=== PATIENT | male | born 1950 | race Caucasian/White ===

== ENCOUNTER 2017-06-28 16:07 | Inpatient (IN) | payer OTHER ==
[2017-06-28] MEDS ORDERED: ONDANSETRON 4 MG/2 ML VIAL ONE (16:16)
[2017-06-28] MEDS ORDERED: NS 250 ML IV ONE (16:17)
[2017-06-28] MEDS ORDERED: ONDANSETRON 4 MG/2 ML VIAL IVP ONE (16:17)
--- NOTE | 2017-06-28 16:20 | EDPHY ---
H & P Time Seen by Provider: 06/28/17 16:15 HPI/ROS: CHIEF COMPLAINT: Altered mental status HISTORY OF PRESENT ILLNESS: The patient is a 67-year-old male who presents to the emergency department as a full trauma activation via EMS. Per report, the patient was found in the revealing. The report was that he had fallen. Some bystanders help the patient out and walking down the trail. EMS was notified. The patient reports drinking 1 beer. He denies other drug use. The patient does not give a clear history of the event. He denies headache or neck pain. No chest pain or shortness of breath. No abdominal pain. EMS reports the patient's glucose was 100. REVIEW OF SYSTEMS: My complete review of systems is negative except as mentioned in the HPI. Patient notes a large bump in his sternum a baseline Past Medical/Surgical History: Past medical history: Includes cardiac stent with presumed coronary disease. Past surgical history: Includes hernia repair, bilateral hip replacement Social history: The patient drank alcohol today Smoking Status: Never smoked Physical Exam: Vitals noted GENERAL: No acute distress, alert. HEAD: No evidence of trauma. EYES: PERRLA, EOMI, normal to inspection. ENT: Airway intact, no dental or oral injury, no malocclusion, no hemotympanum , normal external examination. NECK: The trachea is midline. There is no crepitus. The C-spine is nontender. RESPIRATORY: Clear to auscultation bilaterally, no rales, rhonchi or wheezing. There is no crepitus or palpable rib fractures. CVS: Regular rate and rhythm, no rubs, murmurs, or gallops. ABDOMEN: Soft, nontender, nondistended, normal bowel sounds, no bruising or abrasions. Pelvis: Stable. No tenderness palpation. Hips full range of motion. GENITAL/RECTAL: Normal external exam. BACK: Normal to inspection, no spinal tenderness, no spinal step off, no notable bruising or abrasions. SKIN: Normal color, warm, dry. No pallor or diaphoresis. EXTREMITIES: Right upper extremity: Atraumatic. No visible signs of trauma. No tenderness palpation. Neurovascular intact distally. Left upper extremity: Atraumatic. No visible signs of trauma. No tenderness palpation. Neurovascular intact distally. Right lower extremity: Atraumatic. No visible signs of trauma. No tenderness palpation. Neurovascular intact distally. Left lower extremity: Atraumatic. No visible signs of trauma. No tenderness palpation. Neurovascular intact distally. NEURO/PSYCH: Alert and oriented x 2, GCS 14, normal mood and affect, normal motor sensory exam. Constitutional: Initial Vital Signs Temperature (C) 36.2 C 06/28/17 16:08 Heart Rate 71 06/28/17 16:08 Respiratory Rate 20 06/28/17 16:08 Blood Pressure 115/76 06/28/17 16:08 O2 Sat (%) 98 06/28/17 16:08 O2 Delivery Mode Room Air Allergies/Adverse Reactions: hydrocodone Allergy (Mild, Verified 09/09/13 02:07) Itching Home Medications: Medication Instructions Recorded Atorvastatin Calcium [Lipitor 20 20 mg PO DAILY 09/06/13 mg (*)] Escitalopram Oxalate [Lexapro] 20 mg PO DAILY 09/06/13 Zolpidem Tartrate [Ambien 10 mg] 10 mg PO HS 09/06/13 clonazePAM [Klonopin (*)] 0.5 - 1 mg PO DAILY PRN 09/06/13 traMADol [Ultram 50 mg (*)] 50 mg PO Q6 PRN 09/06/13 Oxycodone Ir [Oxy Ir 5 mg (RX)] 5 - 15 mg PO Q3 PRN #60 tab 12/01/13 Aspirin [Aspirin 81mg (*)] 06/28/17 Medical Decision Making - Diagnostics Imaging Results: Imaging Impressions Abdomen CT 06/28/17 00:00 Impression: 1. Extensive pulmonary abnormalities consisting of spiculated pulmonary nodules , infiltration of the perihilar regions bilaterally, and mediastinal lymphadenopathy. This may represent a manifestation of sarcoidosis or granulomatous disease, although malignant etiology could appear similar. Correlation with previous outside imaging examinations would be of benefit. 2. No evidence of acute traumatic injury within the chest, abdomen, or pelvis. Degenerative changes within the thoracic and lumbar spine. Results reviewed directly with Dr. Ramirez and also called to Dr. Chen George. Cervical Spine CT 06/28/17 16:14 Impression: Cervical degenerative changes. No acute fracture identified. Examination reviewed with Dr. Ramirez at the time of the study. Head CT 06/28/17 16:14 Impression: Negative noncontrast CT of the brain Results reviewed with Dr. Ramirez at the time of the interpretation. Chest CT 06/28/17 16:17 Impression: 1. Extensive pulmonary abnormalities consisting of spiculated pulmonary nodules , infiltration of the perihilar regions bilaterally, and mediastinal lymphadenopathy. This may represent a manifestation of sarcoidosis or granulomatous disease, although malignant etiology could appear similar. Correlation with previous outside imaging examinations would be of benefit. 2. No evidence of acute traumatic injury within the chest, abdomen, or pelvis. Degenerative changes within the thoracic and lumbar spine. Results reviewed directly with Dr. Ramirez and also called to Dr. Chen George. Procedures: Procedure: Trauma ultrasound. Limited echocardiogram for pericardial effusion. Limited bedside ultrasound was performed and interpreted by myself for the indication of: thoracoabdominal trauma utilizing the thoracoabdominal emergency ultrasound protocol. Limited transthoracic echocardiogram: The pericardium was visualized and found to be negative for pericardial fluid. The study was negative for pericardial effusion. Limited abdominal ultrasound for blunt abdominal trauma. 1) The right upper quadrant was visualized and was found to be negative for intraperitoneal fluid. 2) The left upper quadrant was visualized and found to be negative for intraperitoneal fluid. The study was felt to be negative for free intraperitoneal fluid. Limited pelvic ultrasound was conducted for abdominal trauma. The bladder was visualized and did not reveal an anechoic area outside of the adjacent urinary bladder. The study was felt to be negative for free intraperitoneal fluid. ED Course/Re-evaluation: In the emergency department I discussed possible etiologies with the patient. I answered all his questions. I discussed the plan. The patient was taken to CT imaging. Dr. Ramirez was present for the initial evaluation. He requested that I add a CT of the chest. This was completed. I performed a bedside FAST ultrasound on his initial evaluation. Negative. The patient was covered in warm blankets. His initial temperature was 36degrees. I checked on the patient while in CT imaging. He was stable. Dr. Ramirez was with him during CT imaging. 1645: I reexamined the patient in the emergency department. He had episodes of closing his eyes and leaning back in the bed. He continues to maintain his airway but he became less responsive. He would arouse to voice. His initial CT imaging reports by Dr. Raimrez showed nothing acute in the head or neck. Dr. Ramirez reported to me that the patient had significant metastatic disease in the chest. Because of this I called Dr. Alejandro. The [employer] phone was not working and I was unable to get a hold of him. I subsequently paged Dr. Davison. The [employer] phone was not working and I was unable to get hold of him. I will have the [employer] paged the product inspection coordinator radiologist. EKG shows normal sinus rhythm, normal rate, normal axis, normal intervals. There are no ST or T-wave abnormalities. EKG is normal as interpreted by me. Dr. Ramirez discussed the findings with the patient. The patient stated that he had a history of sarcoidosis. I am still waiting call back from Radiology. The patient's laboratory studies were unremarkable. CBC and chemistry are normal. Troponin is normal. Alcohol less than 10. 1700: Head CT/C-spine. Please refer the dictated report by Dr. Longo. Patient has cerebral atrophy. The spine shows DJD . No acute disease noted. CT chest, abdomen and pelvis: Please refer the dictated report by Dr. Lion Alejandro. The patient has multiple nodular lesions is lungs. There lymphadenopathy. This could be consistent with metastatic disease as well as sarcoidosis. The patient's abdomen and pelvis is unremarkable for any traumatic injury. Because of the patient's mental status an MRI was ordered. On further history with the patient and discussion with Dr. Ramirez, the patient states that he was actually sitting on a rock drinking a beer. He became very tired and laid down. This is when the by bystanders found him. He denies falling. 1814: I rechecked the patient when he returned from MRI imaging. He has eyes closed appeared to be sleeping. He was arousable by voice. It is unclear why he is so somnolent. Patient denies any other medications this afternoon. He denies drug use. U tox is pending. I am awaiting MRI results. Differential Diagnosis: My differential includes but is not limited to subarachnoid hemorrhage, subdural hematoma, epidural hematoma, spinal injury, ischemic CVA, hemorrhagic CVA, dissection, aneurysm, ACS, acute IA, electrolyte abnormality, sugar abnormality, hypoglycemia Critical Care Time: The patient required 45 min of critical care time. This was exclusive of any unbundled procedure. This was due the patient's presentation as a full trauma activation, episodic altered mental status, need for frequent rechecks, consultation with Radiology and Trauma surgery. - Data Points Laboratory Results: Laboratory Results 06/28/17 16:14 06/28/17 16:14 06/28/17 06/28/17 06/28/17 16:14 16:14 16:14 WBC RBC Hgb Hct MCV MCH MCHC RDW Plt Count MPV Neut % (Auto) Lymph % (Auto) Canadian % (Auto) Eos % (Auto) Baso % (Auto) Nucleat RBC Rel Count Absolute Neuts (auto) Absolute Lymphs (auto) Absolute Monos (auto) Absolute Eos (auto) Absolute Basos (auto) Absolute Nucleated RBC Immature Gran % Immature Gran # PT 13.4 SEC SEC (12.0-15.0) INR 1.00 (0.83-1.16) APTT 25.0 SEC SEC (23.0-38.0) Sodium 141 mEq/L mEq/L (134-144) Potassium 3.8 mEq/L mEq/L (3.5-5.2) Chloride 104 mEq/L mEq/L (97-110) Carbon Dioxide 24 mEq/l mEq/l (22-31) Anion Gap 13 mEq/L mEq/L (8-16) BUN 21 mg/dL mg/dL (7-23) Creatinine 1.0 mg/dL mg/dL (0.7-1.3) Estimated GFR > 60 Glucose 94 mg/dL mg/dL (70-100) Calcium 9.9 mg/dL mg/dL (8.5-10.4) Total Bilirubin 0.5 mg/dL mg/dL (0.1-1.4) Conjugated Bilirubin 0.2 mg/dL mg/dL (0.0-0.5) Unconjugated Bilirubin 0.3 mg/dL mg/dL (0.0-1.1) AST 36 IU/L IU/L (17-59) ALT 54 IU/L IU/L (21-72) Alkaline Phosphatase 58 IU/L IU/L (38-126) Troponin I < 0.012 ng/mL ng/mL (0.000-0.034) Total Protein 6.8 g/dL g/dL (6.3-8.2) Albumin 4.1 g/dL g/dL (3.5-5.0) Ethyl Alcohol < 10 mg/dL mg/dL (0-10) Patient ABO/Rh B POSITIVE Antibody Screen NEGATIVE 06/28/17 16:14 WBC 7.46 10^3/uL 10^3/uL (3.80-9.50) RBC 4.87 10^6/uL 10^6/uL (4.40-6.38) Hgb 14.1 g/dL g/dL (13.7-17.5) Hct 42.3 % % (40.0-51.0) MCV 86.9 fL fL (81.5-99.8) MCH 29.0 pg pg (27.9-34.1) MCHC 33.3 g/dL g/dL (32.4-36.7) RDW 15.0 % % (11.5-15.2) Plt Count 157 10^3/uL 10^3/uL (150-400) MPV 10.7 fL fL (8.7-11.7) Neut % (Auto) 82.7 % H % (39.3-74.2) Lymph % (Auto) 7.5 % L % (15.0-45.0) Canadian % (Auto) 8.3 % % (4.5-13.0) Eos % (Auto) 0.8 % % (0.6-7.6) Baso % (Auto) 0.4 % % (0.3-1.7) Nucleat RBC Rel Count 0.0 % % (0.0-0.2) Absolute Neuts (auto) 6.17 10^3/uL 10^3/uL (1.70-6.50) Absolute Lymphs (auto) 0.56 10^3/uL L 10^3/uL (1.00-3.00) Absolute Monos (auto) 0.62 10^3/uL 10^3/uL (0.30-0.80) Absolute Eos (auto) 0.06 10^3/uL 10^3/uL (0.03-0.40) Absolute Basos (auto) 0.03 10^3/uL 10^3/uL (0.02-0.10) Absolute Nucleated RBC 0.00 10^3/uL 10^3/uL (0-0.01) Immature Gran % 0.3 % % (0.0-1.1) Immature Gran # 0.02 10^3/uL 10^3/uL (0.00-0.10) PT INR APTT Sodium Potassium Chloride Carbon Dioxide Anion Gap BUN Creatinine Estimated GFR Glucose Calcium Total Bilirubin Conjugated Bilirubin Unconjugated Bilirubin AST ALT Alkaline Phosphatase Troponin I Total Protein Albumin Ethyl Alcohol Patient ABO/Rh Antibody Screen Departure - Departure Disposition: [facility] Acute Clinical Impression: Altered mental status, unspecified Qualifiers: Altered mental status type: unspecified Qualified Code(s): R41.82 - Altered mental status, unspecified Fall Qualifiers: Encounter type: initial encounter Qualified Code(s): W19.XXXA - Unspecified fall, initial encounter Condition: Fair
[2017-06-28 16:28] LABS: % IMMATURE GRANULYOCYTES 0.3 % (0.0-1.1); ABSOLUTE IMMATURE GRANULOCYTES 0.02 10^3/uL (0.00-0.10); ADD DIFF? NO; ADD MORPH? NO; ADD SCAN? NO; ATYPICAL LYMPHOCYTE FLAG 0 (0-99); FRAGMENT RBC FLAG 0 (0-99); HEMATOCRIT 42.3 % (40.0-51.0); HEMOGLOBIN 14.1 g/dL (13.7-17.5); LEFT SHIFT FLG 0 (0-99); LIPEMIA HEMOLYSIS FLAG 80 (0-99); MEAN CELL HEMOGLOBIN CONCENTR. 33.3 g/dL (32.4-36.7); MEAN CELL VOLUME 86.9 fL (81.5-99.8); MEAN PLATELET VOLUME 10.7 fL (8.7-11.7); PLATELET CLUMPS FLAG 10 (0-99); PLATELET COUNT 157 10^3/uL (150-400); RED BLOOD CELL COUNT 4.87 10^6/uL (4.40-6.38)
[2017-06-28 16:37] LABS: PROTIME(PATIENT) 13.4 SEC (12.0-15.0)
[2017-06-28 16:39] LABS: ALANINE AMINOTRANSFERASE 54 IU/L (21-72); ALBUMIN 4.1 g/dL (3.5-5.0); ALKALINE PHOSPHATASE 58 IU/L (38-126); ANION GAP 13 mEq/L (8-16); ASPARTATE AMINOTRANSFERASE 36 IU/L (17-59); BILIRUBIN,TOTAL 0.5 mg/dL (0.1-1.4); BILIRUBIN-CONJUGATED 0.2 mg/dL (0.0-0.5); BILIRUBIN-UNCONJUGATED 0.3 mg/dL (0.0-1.1); CALCIUM 9.9 mg/dL (8.5-10.4); CARBON DIOXIDE 24 mEq/l (22-31); CHLORIDE 104 mEq/L (97-110); ETHANOL SERUM < 10 mg/dL (0-10); GLOMERULAR FILTRATION RATE > 60; GLUCOSE 94 mg/dL (70-100); POTASSIUM 3.8 mEq/L (3.5-5.2); SODIUM 141 mEq/L (134-144); TOTAL PROTEIN 6.8 g/dL (6.3-8.2)
[2017-06-28 16:50] LABS: TROPONIN I < 0.012 ng/mL (0.000-0.034)
--- NOTE | 2017-06-28 16:50 | CPEKG ---
Heart Rate: 71 RR Interval: 845 P-R Interval: 192 QRSD Interval: 96 QT Interval: 408 QTC Interval: 444 P [place]: 57 QRS [place]: 35 T Wave [place]: 4 EKG Severity - BORDERLINE ECG - EKG Impression: SINUS RHYTHM EKG Impression: BORDERLINE INFERIOR Q WAVES Electronically Signed By: Santiago Gallardo 30-Jun-2017 08:45:10
--- NOTE | 2017-06-28 17:04 | ASMTCMCOM ---
CM Note CM Note Notes: Patient arrives to ER via EMS-[facility]. patient was evidently found by other hikers at [facility] after patient apparently feel off the trail and into a ravine. Patient was then described to EMS as "confused" as they walked him to the parking lot. Patient is awake, responding to ER staff and then taken to CT. Per chart review (previous visit) pt has a , Lisa forman and a friend, John . I have LM with both, received call back from John who informs me patient is . Patient moved to [place] from [place] within the past couple of years (after his divorce). John is unaware of any other NOK/contacts for patient Patient returns from CT and states that he has a daughter, Renuka in [place] . I have called Renuka and LM re patient's status and have updated patient's contact information with registration Date Signed: 06/28/2017 05:04 PM Electronically Signed By:Fifi Castaneda RN
[2017-06-28] MEDS ORDERED: GADOBUTROL 10 ML VIAL IVP ONE (17:41)
--- NOTE | 2017-06-28 17:49 | GHP ---
[f rep st] PREOP HISTORY AND PHYSICAL DATE OF ADMISSION: 06/28/2017 The patient was a full trauma activation. HISTORY: The patient is a 67-year-old male who was hiking in the [place] area. He was tired. He found a nice rock to sit down on and had a cold beer. Next thing he knew he was being helped up by passersby and actually was walked out of the area. He apparently got a little lightheaded. A ranger was called and EMS met them at the [place] [facility]. On presentation to the emergency department. He is somewhat somnolent. There had been an erroneous history that he was on an anticoagulant. His airway was clear. His breathing was unencumbered. There is no obvious bleeding or injury. Focused history shows that he has hives with [place]. CURRENT MEDICATIONS: Include Klonopin, Lexapro, Wellbutrin, Lipitor, and 81 mg aspirin. FOCUSED HISTORY: Reveals that he has had 1 seizure in the past. He has had a laparoscopic inguinal hernia repair, 2 cardiac stents, bilateral hip replacements, and sarcoidosis. On a head-to-toe examination, his skull was normocephalic and atraumatic. His pupils were 3 mm and reactive. He was oriented x3. GCS was 14. Cranial nerves were intact. He has normal dental occlusion. There are no raccoon eyes. No Ta sign. His head was maintained in line traction. His collar was removed. His neck was palpably normal (note he had walked out without a collar). The collar was replaced until the CT report of the cervical spine became available. His right upper extremity and left upper extremity were unremarkable and had full range of motion. The clavicles are unremarkable. The chest is stable to AP and lateral compression. LUNGS: Clear to auscultation. CARDIAC: Shows S1, S2 to be normal. Normal split of S2 without murmurs, rubs, or gallops. Abdomen is soft and nontender, normoactive bowel sounds. A FAST examination did not show any signs of intraabdominal fluid. Did not show any signs of cardiac tamponade. Appeared to show an appropriate ejection fraction. His pelvis is stable to AP and lateral compression. His lower extremities are unremarkable. The back was inspected when he was rolled prior to going into the CT. He was taken to CAT scan where a CAT scan of his head shows, among other thing, some atrophy, but no obvious bleeding at this point. His C-spine was unremarkable. His CT of his chest showed nodular changes in the lung dominguez and prominent central nodes. His abdomen CT was unremarkable. On his return to the emergency department, he is more arousable at this point. At this point, he relates that the nodularity in his chest may in fact be the sarcoid he has been followed for the past 6 years. 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 IMPRESSION: Aside from a sedated affect, no other abnormalities were appreciated. Initial blood pressure was 115/76, heart rate 71, respiratory rate 20, temperature 36.2, pulse ox 98. His blood pressure remained stable. His laboratories were unremarkable. His glucose was appropriate. The source of his sedation remains unclear. An MRI of his brain will be obtained. He will be observed in the emergency room and if it is not clear or he does not clear, he will be admitted for observation. /[id number]/MODL MTDD
[2017-06-28] MEDS ORDERED: ONDANSETRON DISINTEGRATING 4 MG TAB PO PRN (18:21)
[2017-06-28] MEDS ORDERED: LR 1,000 ML IV SCH (18:30)
[2017-06-28 18:49] LABS: COLOR PALE YELLOW; LEUKOCYTE ESTERASE,URINE NEGATIVE (NEGATIVE); NITRITE,URINE NEGATIVE (NEGATIVE)
[2017-06-28] MEDS ORDERED: ACETAMINOPHEN 325 MG TAB PO SCH (22:00)
[2017-06-29] MEDS: ACETAMINOPHEN 500 MG TAB PO SCH ×3 (00:09→15:36)
[2017-06-29 04:34] LABS: % IMMATURE GRANULYOCYTES 0.2 % (0.0-1.1); ABSOLUTE IMMATURE GRANULOCYTES 0.01 10^3/uL (0.00-0.10); ADD DIFF? NO; ADD MORPH? NO; ADD SCAN? YES; ATYPICAL LYMPHOCYTE FLAG 0 (0-99); FRAGMENT RBC FLAG 0 (0-99); HEMATOCRIT 39.2 % (40.0-51.0); HEMOGLOBIN 13.1 g/dL (13.7-17.5); LEFT SHIFT FLG 0 (0-99); LIPEMIA HEMOLYSIS FLAG 80 (0-99); MEAN CELL HEMOGLOBIN 28.8 pg (27.9-34.1); MEAN CELL HEMOGLOBIN CONCENTR. 33.4 g/dL (32.4-36.7); MEAN CELL VOLUME 86.2 fL (81.5-99.8); MEAN PLATELET VOLUME 10.8 fL (8.7-11.7); PLATELET COUNT 148 10^3/uL (150-400); RED BLOOD CELL COUNT 4.55 10^6/uL (4.40-6.38); RED CELL DISTRIBUTION WIDTH 15.2 % (11.5-15.2)
[2017-06-29 04:35] LABS: PLATELET CLUMPS FLAG 210 (0-99)
[2017-06-29 04:55] LABS: ANION GAP 9 mEq/L (8-16); CALCIUM 8.8 mg/dL (8.5-10.4); CARBON DIOXIDE 21 mEq/l (22-31); CHLORIDE 111 mEq/L (97-110); CREATININE 0.9 mg/dL (0.7-1.3); GLOMERULAR FILTRATION RATE > 60; GLUCOSE 84 mg/dL (70-100); POTASSIUM 3.9 mEq/L (3.5-5.2); SODIUM 141 mEq/L (134-144)
[2017-06-29 05:00] LABS: SCAN NEGATIVE
--- NOTE | 2017-06-29 07:53 | TRAUMAPN ---
Assessment/Plan: PAD#1 06/29/2017 Assessment: Stable from trauma standpoint. Concerns have changed. Apparently the patient has been under mental health care. He reports that he recently started working at [employer] (formerly known [employer]) and stole several items. He was caught and said that he offered to pay for the items. That was not accepted. He tried to contact the police but reports that he was unable to do so. He states that he became despondent, took Ambien (15) and clonazepam (15) when he took a hike yesterday. He also reports a beer. He said that he was trying to commit suicide. Plan: M1 hold I will ask the hospitalist to assist/assume care Get mental health involved. Subjective: "I'm so sorry" Objective: Vital Signs Temp Pulse Resp BP Pulse Ox 36.5 C 68 10 L 138/75 H 98 06/29/17 04:00 06/29/17 04:00 06/29/17 04:00 06/29/17 04:00 06/29/17 04:00 Laboratory Results 06/29/17 04:15 06/29/17 04:15 06/28/17 06/29/17 06/30/17 05:59 05:59 05:59 Intake Total 1200 Output Total 200 Balance 1000 PT 13.4 SEC (12.0-15.0) 06/28/17 16:14 INR 1.00 (0.83-1.16) 06/28/17 16:14 - C-Spine Clearance Cervical Spine Cleared: Yes Provider who Cleared Cervical Spine: James Physical Exam - Physical Exam General Appearance: WD/WN, alert, no apparent distress Neck: non-tender, full range of motion, supple Respiratory: chest non-tender, lungs clear, normal breath sounds Cardiac/Chest: regular rate, rhythm Abdomen: normal bowel sounds, non-tender, soft Male Genitalia: deferred Rectal: deferred Back: Normal inspection Skin: normal color, warm/dry Extremities: normal range of motion, non-tender Neuro/Psych: no motor/sensory deficits, alert, normal mood/affect, oriented x 3 Time Spent w/Patient (minutes): 25
[2017-06-29] MEDS ORDERED: ASPIRIN 81 MG CHEWABLE TAB PO SCH (09:00)
[2017-06-29 09:16] VITALS: PULSE 70; RESP 16; TEMP 98.1
--- NOTE | 2017-06-29 12:23 | GCON ---
[f rep st] CONSULTATION DATE OF CONSULTATION: 06/29/2017 REFERRING PHYSICIAN: Alberto Ramirez MD REASON FOR CONSULTATION: Suicide attempt. HISTORY OF PRESENT ILLNESS: A 67-year-old male with history of anxiety, depression, coronary disease , who was hiking at [place] and felt very fatigued. He found a rock to sit down and had a beer. The next thing he remembers was being held by a passerby. On presentation to the ER, he was somewhat somnolent. Upon my interview, he states that he received bad news from an ex-employer at 2:00 p.m. and felt hope less and could not think of a positive outcome, so took 15 Klonopin and 15 Ambien in hopes to kill hi mself. He is followed by [facility] for the past 2 years and last saw them 10 days ago. He had previously been on Wellbutrin but tapered himself off the last 3 weeks. He says he told [facility] and they were okay with that. He still takes clonazepam. Denies other episodes of suicide attempt. Overall he says he has actually been doing well the last year, socially, mentally and physically, bu t this news really upset him. REVIEW OF SYSTEMS: I completed a 10-point review of systems, negative except as noted in HPI. PAST MEDICAL HISTORY: Anxiety, depression, followed by P, coronary artery disease with 2 stents 15 years ago, sarcoid. PAST SURGICAL HISTORY: Bilateral ERIS, cholecystectomy, left knee repair, inguinal mesh this year. FAMILY HISTORY: Dad with lymphoma and diabetes. Mother when she was 76. SOCIAL HISTORY: He is . He has 3 kids that he is estranged from, but is trying to rebuild t he relationship with 1 of them. He is living in [place]. Denies tobacco or drugs. Drinks daily win e. MEDICATIONS: Multivitamin, herbal supplement, Ambien 10 mg at bedtime, fish oil 2000 mg daily, lisin opril 5 mg daily, temazepam 0.1 mg p.o. p.r.n., atorvastatin 20, aspirin 81 mg daily. ALLERGIES: Hydrocodone. PHYSICAL EXAMINATION: VITAL SIGNS: Temperature 36.7, blood pressure 130/79, heart rate in the 70s, respirations 16, and 98 on room air. GENERAL: Well-appearing male sitting up in bed, no acute distr ess. HEENT: PERRLA. EOMI. Oropharynx clear. CV: Regular rate and rhythm. No murmurs, gallops, rubs. LUNGS: Clear to auscultation bilaterally. ABDOMEN: Soft, nontender, nondistended. Positive bowel sounds. : No Jacinto. MUSCULOSKELETAL: 5/5 upper and lower extremity strength. NEURO: 2 through 12 intact. PSYCH: Alert and oriented x3. Flat affect. Answering questions appropriately. LABORATORY DATA: WBC is 5.2, hemoglobin 13, hematocrit 39, platelets 148. Coags within normal. Sod ium 141, potassium 3.9, chloride 111, carbon dioxide 21, creatinine 0.9, glucose 84. UA negative. U rine tox negative. Negative alcohol. Coags within normal. LFTs within normal. Troponin less than 0.012. Abdominal CT: Extensive pulmonary abnormality consisting of spiculated pulmonary nodules, infiltrati on of perihilar region bilaterally and mediastinal lymphadenopathy. This may be airport representative of sa rcoid. No evidence of acute traumatic chest injury. Cervical spine CT: Cervical degenerative changes. No acute fracture. Chest CT: Extensive pulmonary abnormalities consistent of spiculated prominent pulmonary nodules. Brain MRI: Negative study. EKG personally reviewed by me, normal sinus rhythm. ASSESSMENT AND PLAN: 1. Suicidal attempt: Patient endorses taking clonazepam and Ambien in the setting of bad news from his old employer. He is medically cleared and I recommend evaluation by [facility]. I w ill place a call today. 2. Concern for possible fall: Patient underwent extensive trauma evaluation with imaging by Dr. Vinny oates. No intervention warranted or acute fractures. 3. Coronary artery disease: Resume home medications. 4. Anxiety/depression: Again, P to evaluate. He did self taper off the Wellbutrin and question i f this was a good idea. I defer to them. 5. Hypertension: Lisinopril. DISPOSITION: Patient is medically clear, awaiting psychiatric evaluation and currently on a mental h [facility] hold. Thank you for this consultation. Will follow along. Please call if questions. /[id number]/MODL
[2017-06-29 15:51] VITALS: BP 143/80; O2SAT 96
[2017-06-29] MEDS ORDERED: PNEUMOC 13-VAL CONJ-DIP CRM/PF 0.5 ML SYR IM ONE (21:09)
[2017-06-29] MEDS ORDERED: FLU VACC QS 2017-18 (3YR+)/PF 0.5 ML SYR (FLUARIX QUAD) IM ONE (21:09)
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
== END 2017-06-29 22:03 | DRG 93 ==
LOC: EDUNIT# → F2N 18:36 → OBSVTOIN 06-29 10:51 → F2N 06-29 15:23
PROVIDERS: ADMIT Internal Medicine; ATTEND Internal Medicine
DX: G92 Toxic encephalopathy (principal); T42.6X2A Poisoning by other antiepileptic and sedative-hypnotic drugs, intentional self-harm, initial encounter; T42.4X2A Poisoning by benzodiazepines, intentional self-harm, initial encounter; I25.10 Atherosclerotic heart disease of native coronary artery without angina pectoris; F41.8 Other specified anxiety disorders; I10 Essential (primary) hypertension; D86.0 Sarcoidosis of lung; W19.XXXA Unspecified fall, initial encounter; Z96.643 Presence of artificial hip joint, bilateral; Z23 Encounter for immunization; Y93.01 Activity, walking, marching and hiking; Y92.828 Other wilderness area as the place of occurrence of the external cause
CPT/HCPCS: 80305; 82947-QW; A9585; G0008; G0009; G0378; G0480; J2405

== ENCOUNTER 2018-02-17 08:07 | Inpatient (IN) | payer OTHER ==
--- NOTE | 2018-02-17 07:29 | GHP ---
[f rep st] PREOP HISTORY AND PHYSICAL CHIEF COMPLAINT: Right ankle. HISTORY OF PRESENT ILLNESS: The patient is a 67 year old with a history of progressive right ankle pain. The patient is having limitations in his ambulatory status secondary to his pain. PAST MEDICAL HISTORY: Positive for coronary artery disease, depression, and hypercholesterol. PAST SURGICAL HISTORY: Positive for a bilateral total hip arthroplasty and cardiac stents. MEDICATIONS: He takes zolpidem and gabapentin. ALLERGIES: He lists no drug allergies. SOCIAL HISTORY: Negative for tobacco use. REVIEW OF SYSTEMS: Noncontributory. PHYSICAL EXAMINATION: GENERAL APPEARANCE: The patient is alert and oriented x3 , in mild distress secondary to his ankle discomfort. HEENT: Head is normocephalic. Pupils are equal, round, and reactive to light. Extraocular eye movements are intact. NECK: Supple. CHEST: Clear to auscultation. HEART : Regular rate and rhythm. No murmurs. ABDOMINAL: Soft, nontender, and nondistended. No organomegaly. GENERAL RECTAL/BREASTS: Deferred. EXTREMITIES : Reveal swelling and tenderness about the anterior aspect of his right ankle with an elevated 1st ray. ASSESSMENT: Right ankle arthrosis. PLAN: The patient is scheduled to undergo a total ankle arthroplasty. /[id number]/MODL MTDD
[2018-02-17] MEDS ORDERED: ceFAZolin 2 GM/DEXTROSE 100 ML IV ONE (10:29)
[2018-02-17] MEDS ORDERED: LIDOCAINE 1% 2 ML INJ ID PRN (10:30)
[2018-02-17] MEDS ORDERED: LR 1,000 ML IV ONE (10:30)
[2018-02-17] MEDS ORDERED: BUPIVACAINE 0.25% 30 ML SDV ONE (10:38)
[2018-02-17] MEDS ORDERED: MIDAZOLAM 2 MG/2 ML VIAL IVP ONE (11:53)
[2018-02-17] MEDS ORDERED: MIDAZOLAM 2 MG/2 ML VIAL ONE ×2 (11:53)
[2018-02-17] MEDS ORDERED: fentaNYL 100 MCG/2 ML INJ ONE ×4 (11:53→15:40)
[2018-02-17] MEDS ORDERED: fentaNYL 100 MCG/2 ML INJ IVP ONE (11:55)
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
[2018-02-17] MEDS ORDERED: PROPOFOL 200 MG/20 ML VIAL ONE ×3 (14:01→15:40)
[2018-02-17] MEDS ORDERED: PROPOFOL/EMULSION 500 MG/50 ML BOTTLE IV ONE (14:01)
[2018-02-17] MEDS ORDERED: ROPIVACAINE HCL 150 MG/30 ML INJ ONE (14:16)
[2018-02-17] MEDS ORDERED: ROPIVACAINE 0.2% 1,100 MG in PUMP SET 1 EA NB SCH (14:30)
[2018-02-17] MEDS ORDERED: ePHEDrine SULFATE 25 MG/5 ML SYR ONE ×3 (14:44→14:45)
[2018-02-17] MEDS ORDERED: LIDOCAINE 2% 5 ML SDV ONE (14:44)
[2018-02-17] MEDS ORDERED: DEXAMETHASONE 4 MG/ML VIAL ONE (15:39)
[2018-02-17] MEDS ORDERED: LABETALOL HCL 5 MG/ML 20 ML MDV ONE (16:03)
[2018-02-17] MEDS ORDERED: ONDANSETRON 4 MG/2 ML VIAL ONE (16:13)
[2018-02-17] MEDS ORDERED: MAGNESIUM HYDROXIDE 30 ML UDCUP PO PRN (16:42)
[2018-02-17] MEDS ORDERED: NALOXONE HCL 0.4 MG/ML INJ IVP PRN ×2 (16:42→16:46)
[2018-02-17] MEDS ORDERED: TEMAZEPAM 15 MG CAP PO PRN (16:42)
[2018-02-17] MEDS ORDERED: PROMETHAZINE HCL 25 MG/ML INJ IVP PRN (16:42)
[2018-02-17] MEDS ORDERED: POLYETHYLENE GLYCOL 3350 17 GM PKT PO PRN (16:42)
[2018-02-17] MEDS ORDERED: ONDANSETRON 4 MG/2 ML VIAL IVP PRN ×2 (16:42→16:46)
[2018-02-17] MEDS ORDERED: BISACODYL 10 MG SUPP PR PRN (16:42)
[2018-02-17] MEDS ORDERED: morphINE PCA 30 MG/30 ML PCA IV PRN (16:42)
[2018-02-17] MEDS ORDERED: LACTULOSE 20 GM/30 ML UDCUP PO PRN (16:42)
--- NOTE | 2018-02-17 16:42 | POSTOPPROG ---
Post Op Note Date of Operation: 02/17/18 Surgeon: Geremias [facility] [employer] Operations Analyst: Lebron Anesthesia: GET(General Endotracheal) Pre-op Diagnosis: R ankle arthritis, midfoot collapse Post-op Diagnosis: same plus lateral ankle instability Procedure: R TAA, NC arthrodesis, lat ankle lig reconstruction Inf/Abcess present in the surg proc area at time of surgery?: No EBL: Minimal
[2018-02-17] MEDS ORDERED: D5W 1/2 NS W/ 20 KCl/L 1,000 ML IV SCH (16:45)
[2018-02-17] MEDS ORDERED: ACETAMINOPHEN 500 MG TAB PO PRN (16:46)
[2018-02-17] MEDS ORDERED: LABETALOL HCL 5 MG/ML 20 ML MDV IVP PRN (16:46)
[2018-02-17] MEDS ORDERED: oxyCODONE IR 5 MG TAB PO PRN (16:46)
[2018-02-17] MEDS ORDERED: HYDROmorphONE/DILAUDID 1 MG/ML INJ IVP PRN (16:46)
[2018-02-17] MEDS ORDERED: fentaNYL 100 MCG/2 ML INJ IVP PRN (16:46)
--- NOTE | 2018-02-17 18:48 | GOP ---
[f rep st] OPERATIVE REPORT DATE OF OPERATION: 02/17/2018 SURGEON: Geremias aMyo MD TRADING ASSISTANT: JORGE LUIS Jacome, who was necessary for the completion of the surgery. ANESTHESIA: General plus indwelling popliteal and saphenous nerve blocks performed by the anesthesio logist at my request for postoperative pain management. PREOPERATIVE DIAGNOSIS: 1. Right ankle advanced arthritis. 2. Right midfoot medial hindfoot collapse/navicular cuneiform arthritis. POSTOPERATIVE DIAGNOSIS: 1. Right ankle advanced arthritis. 2. Right midfoot medial hindfoot collapse/navicular cuneiform arthritis. 3. Lateral ankle instability. PROCEDURE PERFORMED: 1. Right implant total ankle arthroplasty. 2. Right lateral ankle ligament reconstruction. 3. Right navicular cuneiform arthrodesis. 4. Local bone graft. FINDINGS: ESTIMATED BLOOD LOSS: Minimal. INDICATIONS: The patient is a 67-year-old with end-stage ankle arthritis. The patient was having si gnificant limitations in his activity stemming from his arthritis. Based on his persistence of sympt oms, he is interested in pursuing operative treatment. From an operative standpoint, after thorough discussion with the patient regarding end-stage surgical options, including arthrodesis and total ank le arthroplasty, the patient elected to pursue total ankle arthroplasty. The patient acknowledged he understood the potential risks of the operation including, but not limited to, bleeding, infection, neurovascular damage, including loss of limb or limb function, malunion, nonunion, implant failure, p ain or functional limitations despite operative treatment, need for implant removal, revision, arthro desis, or amputation, and anesthetic risks. He acknowledged he understood the potential risks, plann ed procedure, and postoperative plan well, and had all questions answered prior to surgery. He gave his consent for the operative procedure. DESCRIPTION OF PROCEDURE: The patient was brought to the operating room after IV antibiotics were ad ministered. Indwelling popliteal and saphenous nerve blocks were performed by the anesthesiologist cristiana correa at my request for postoperative pain management. General anesthetic was administered . A tourniquet was placed on the right thigh, bump underneath the right hip and shoulder, and the [facility] lower leg was prepped and draped in standard sterile fashion. After marking the incision and Sanjiv wrap exsanguination, tourniquet was inflated to 250. An anterior approach to the ankle was utilized for exposure. Longitudinal incision was made along the anterior aspect of the ankle. Skin and subc utaneous tissue were sharply incised. Extensor retinaculum was incised in line with the skin incisio n. The interval between the tibialis anterior and extensor hallucis longus was utilized for exposure . The capsule was longitudinally split and reflected medially and laterally. The cutting jig from [employer] total ankle was placed. The cutting jig was optimally corrected for length, angul ar alignment, rotation, and medial and lateral translation. The yomaira wing and sagittal alignment ba r were utilized as aids to optimize this along with fluoroscopic views. The cutting jig was pinned i nto place. After protecting the medial lateral gutters with pins, the sagittal saw was utilized to c reate the transverse tibial cut. Pre-drilling along the medial gutter was performed, and a reciproca ting saw was utilized to finalize the cut. The cut bone portions were removed without difficulty. Add2paper talar dome cutting guide was applied, and distraction through the jig was accomplished to allow fo r appropriate cut on the talar dome. Sagittal saw was utilized to make this cut after pinning the im plant into place. The talus posterior and anterior chamfer block was then applied to the talus, and position confirmed fluoroscopically. After pinning this in place, the posterior chamfer cut was made with a saw. The anterior cut was then made with the milling device. The taler peg holes were appli ed. During this process, the size 2 cutting jig was utilized. The talar trial was impacted into cat ce after fine tuning the bone cuts with a saw, and was found to have excellent fit. After measuring the tibia, a 2X tibial component was found to be appropriate. The 2X tibial trial with 8 mm polyethy zonia was placed. There was noted to be lateral laxity. A partial release of the medial ligamentous structures off the talus was accomplished to better balance the medial and lateral ligaments. After doing this, a 10 mm polyethylene was placed, gaining much better stability. The tibial peg hole guid e was then utilized to create tibial pedicle cuts. Fluoroscopically, this implant was found to have a good fit. A definitive 2X tibia size 2 talar less than 10 mm polyethylene were impacted into place , and fluoroscopically and clinically found to have good fit. There was still some residual lateral laxity. The lateral ligamentous complex, including a portion of the calcaneal fibular ligament, was then brought up into drill holes in the fibula, further stabilizing the ankle. After doing this, cli nical examination revealed marked improved lateral stability. The anterior wound was closed with 2-0 Vicryl suture in the capsule and extensor retinaculum in interrupted fashion, 3-0 Vicryl suture in i nterrupted fashion in the subcutaneous tissue, and 4-0 nylon interrupted sutures in the skin. Attention was then directed toward the navicular cuneiform arthrodesis. A horizontal incision was ma de along the medial aspect of the hind foot over the navicular cuneiform joint. Skin and subcutaneou s tissue were sharply incised. Sharp dissection was carried in the interval between the tibialis ant erior and tibialis posterior tendons, exposing the joint. Utilizing rongeur, curettes, and chisel, t he articular surface was denuded. In preparation for arthrodesis, subchondral bone was drilled multi ple times with a 2.0 mm drill bit and further roughened with a chisel. Bone graft harvested from the cut portions of the tibia from the total ankle was impacted into place. With the joint held in a re duced position plantar flexing the cuneiform appropriately, three 4.0 mm cortical screws were placed in lag fashion from the navicular into the cuneiform and cuneiform into the navicular, as well. Fluo roscopic views confirmed favorable arthrodesis and hardware positions. Attention was directed toward closure of this wound. Subcutaneous tissue was closed with 3-0 Vicryl suture in interrupted fashion. Skin was closed with 4-0 nylon interrupted sutures. The wounds were dressed with sterile Adaptic, 4 x 4, and Webril, and the leg was placed in a below-knee splint. The patient tolerated the procedure well, and was taken to the recovery room extubated in stable conditio n postoperatively. All sponge, needle, and instrument counts were reported as being correct. DRAINS: None. COMPLICATIONS: None. PLAN: The patient will be admitted for overnight observation and management. He would be nonweightb earing on his operative extremity. /[id number]/MODL
[2018-02-17] MEDS: ceFAZolin 2 GM/DEXTROSE 100 ML IV SCH (21:53)
[2018-02-17] MEDS: SENNOSIDES/DOCUSATE SODIUM TAB PO SCH (21:53)
[2018-02-17] MEDS: oxyCODONE IR 5 MG TAB PO PRN (22:04)
[2018-02-18] MEDS: oxyCODONE IR 5 MG TAB PO PRN ×3 (02:04→09:26)
[2018-02-18] MEDS ORDERED: oxyCODONE IR 5 MG TAB PO PRN (06:05)
[2018-02-18] MEDS ORDERED: ZOLPIDEM TARTRATE 5 MG TAB PO PRN (06:05)
--- NOTE | 2018-02-18 06:08 | SOAPPROG ---
SOAP Progress Note Assessment/Plan: Assessment: S/P R TAA Pain well controlled d/t nerve block Dressing intact, no D/C Toes with decreased sensation (block) Good cap refill Plan: OOB/PT D/C home 02/18/18 06:06 Objective: Vital Signs Temp Pulse Resp BP Pulse Ox 36.8 C 85 16 123/61 H 95 02/18/18 03:44 02/18/18 03:44 02/18/18 03:44 02/18/18 03:44 02/18/18 03:44 02/17/18 02/18/18 02/19/18 05:59 05:59 05:59 Intake Total 2620 Output Total 2070 Balance 550 ICD10 Worksheet Patient Problems: Problems Problem Status Onset Altered mental status, unspecified Acute Fall Acute HIP ARTHRITIS Acute
[2018-02-18] MEDS: ceFAZolin 2 GM/DEXTROSE 100 ML IV SCH (06:14)
[2018-02-18] MEDS: SENNOSIDES/DOCUSATE SODIUM TAB PO SCH (07:15)
[2018-02-18] MEDS ORDERED: ENOXAPARIN 40 MG/0.4 ML SYR SC SCH (09:00)
[2018-02-18] MEDS ORDERED: ATORVASTATIN CALCIUM 40 MG TAB PO SCH (09:00)
[2018-02-18] MEDS ORDERED: ASPIRIN EC 81 MG TAB PO SCH (09:00)
--- NOTE | 2018-02-18 09:30 | ASDISCHSUM ---
Discharge Information Plan Status:Home with No Needs Medically Cleared to Leave:02/18/2018 Discharge Date:02/18/2018 CM D/C Disposition:Home, Routine, Self-Care ADT D/C Disposition:Home, Routine, Self-Care Projected Discharge Date:02/18/2018 Transportation at D/C:Friend Discharge Delay Reason: Follow-Up Date:02/18/2018 Discharge Slot: Final Diagnosis: Placement Information Patient Contact Information Contact Name:HEIDI Relationship:Daughter Address:[address] [place] [address] City:[place] Alternate Phone: State/Zip Code:[place] [address] Email: Financial Information Financial Class:Medicare Advantage Plans Primary Plan Desc:[facility] ADV[employer]AGE PLANS Primary Plan Number:[id number] Secondary Plan Desc: Secondary Plan Number: Assessment Information Intervention Information
--- NOTE | 2018-02-18 09:31 | ASMTLACE ---
JORGE Length of stay for Answers: 1 day current admission Acuity / Level of Answers: Yes Care: Did the patient have an inpatient admission? Comorbidities - select Answers: Coronary Artery Disease all that apply Opioid dependence / Chronic pain Other Notes: HTN, cardiac stents # of Emergency department Answers: 0 visits in the last 6 months Social determinants Answers: Mental health diagnosis (anxiety, depression, pers onality disorders, etc.) Score: 14 Date Signed: 02/18/2018 09:31 AM Electronically Signed By:FREDY Mcmahan
[2018-02-18 12:33] VITALS: BP 150/94
--- NOTE | 2018-02-18 14:06 | ASMTDCNOTE ---
Case Management Discharge Discharge Order Complete? Answers: Yes Patient to Obtain Answers: Other Notes: via friends Medications Transportation Arranged Answers: Family/Friends Discharge Comments Notes: Pt is s/p a planned R TAA. He declined any home care services and stated he has good support from friends. Pt is discharging home today with no CM needs. Date Signed: 02/18/2018 02:06 PM Electronically Signed By:FREDY Mcmahan
--- NOTE | 2018-02-18 15:21 | PDMN ---
Medical Necessity Medical necessity: [facility] Musculoskeletal surgery or procedure, CPT 78992 67 y /o s/p Right ankle arthroplasty w/ implant and right mid food arthrodesis and right gastrocnemius muscle lengthening. Medicare Inpatient Only.
--- NOTE | 2018-02-18 17:56 | POSTANESTH ---
Post Anesthetic Evaluation Cardiovascular Status: Normal, Stable Respiratory Status: Normal, Stable Level of Consciousness/Mental Status: Can Participate in Eval Pain Control: Adequate, Prn Tx Ordered Nausea/Vomiting Control: Adequate, Prn Tx Ordered Complications Possibly Related to Anesthesia: None Noted (Pt DCed home)
--- NOTE | 2018-03-02 13:35 | GDS ---
[f rep st] DISCHARGE SUMMARY ADMISSION DIAGNOSIS: Right ankle arthrosis. OPERATIONS WHILE IN THE HOSPITAL: Patient underwent right total ankle arthroplasty on 02/17. HISTORY RELATIVE TO ADMISSION: The patient is a 67-year-old with history of end-stage ankle arthriti s. He presented for elective total ankle arthroplasty. HOSPITAL COURSE: The patient was a direct admit and was brought to surgery on the day of admission. He was taken to the regular medical/surgical floor in stable condition postoperatively. His postope rative course was unremarkable. Pain was well controlled with nerve block and oral pain medicine. O n postoperative day 1, he was in satisfactory condition for discharge home as he was medically stable , had pain well controlled, and had passed his rehab goals. DISPOSITION: Discharged home. DIET: Regular. ACTIVITY: Nonweightbearing on his right lower extremity. FOLLOWUP: Will be in 1 week. /[id number]/MODL
== END 2018-02-18 13:38 | disposition home or self-care (01) | DRG 469 ==
LOC: F3N 10:20
PROVIDERS: ADMIT Orthopaedic Surgery Foot and Ankle Surgery; ATTEND Orthopaedic Surgery Foot and Ankle Surgery
DX: M19.071 Primary osteoarthritis, right ankle and foot (principal); M25.371 Other instability, right ankle; I25.10 Atherosclerotic heart disease of native coronary artery without angina pectoris; I10 Essential (primary) hypertension; Z95.5 Presence of coronary angioplasty implant and graft
CPT/HCPCS: 97161-GP; 97165-GO; C1713; G8978-GP-CI; G8979-GP-CI; G8980-GP-CI; G8987-GO-CI; G8988-GO-CI; G8989-GO-CI; J0690; J1100; J1650; J2250; J2405; J2704; J2795; J3010

== ENCOUNTER 2019-01-13 13:12 | Emergency (ER) | payer OTHER | END 2019-01-13 16:13 | disposition home or self-care (01) ==